=== PATIENT | male | born 1980 | race Hispanic/Latino ===

== ENCOUNTER 2023-08-19 15:37 | Observation (INO) | payer OTHER ==
[~2023-08-19] VITALS: Ht 175.3 cm; Wt 133.4 kg
[~2023-08-19 15:37] MED LIST: DOXYCYCLINE HY100 MG PO
[2023-08-19] MEDS: Vancomycin IV 1 GM in SODIUM CHLORIDE 0.9% 250ML 250 ML IV SCH (17:31)
[2023-08-19] MEDS: SODIUM CHLORIDE 0.9% 1000ML 1,000 ML IV STA (17:32)
[2023-08-19] MEDS: KETOROLAC TROMETHAMINE 30 MG/ML VIAL IV STA (17:33)
[2023-08-19] MEDS: ONDANSETRON HCL INJ 2MG/ML 2ML 2 MG/ML VIAL IV STA (17:33)
[2023-08-19 17:42] LABS: BASOPHILS # (AUTO) 0.1 (0.0-0.1); BASOPHILS % 0.4 % (0.0-1.0); EOSINOPHILS # (AUTO) 0.3 (0.0-0.4); EOSINOPHILS % 2.8 % (0.0-6.0); HEMATOCRIT 40.9 % (38.2-49.6); HEMOGLOBIN 14.2 g/dL (14.0-18.0); LYMPHOCYTES # (AUTO) 2.6 (1.0-3.2); MEAN CORPUSCULAR HEMOGLOBIN 29.8 pg (28-32); MEAN CORPUSCULAR HGB CONC 34.7 g/dL (31-35); MEAN CORPUSCULAR VOLUME 85.9 fL (81-99); MONOCYTES # (AUTO) 0.9 (0.2-0.8); MONOCYTES % 7.8 % (4.4-11.3); NEUTROPHILS # (AUTO) 7.9 (2.1-6.9); NEUTROPHILS % 66.7 % (38.7-80.0); PLATELET COUNT 239 x10e3/uL (140-360); RED BLOOD COUNT 4.76 x10e6/uL (4.3-5.7); RED CELL DISTRIBUTION WIDTH 13.6 % (11.7-14.4); WHITE BLOOD COUNT 11.86 x10e3/uL (4.8-10.8)
[2023-08-19 17:53] LABS: INR 1.02; PARTIAL THROMBOPLASTIN TIME 32.6 seconds (23.8-35.5); PROTHROMBIN TIME 13.6 seconds (11.9-14.5)
[2023-08-19 17:58] LABS: ALBUMIN 3.8 g/dL (3.5-5.0); ANION GAP 16.1 mmol/L (8-16); BILIRUBIN,TOTAL 0.5 mg/dL (0.2-1.2); CALCIUM 9.3 mg/dL (8.4-10.2); CREATININE, SERUM 0.78 mg/dL (0.72-1.25); MAGNESIUM 1.9 MG/DL (1.3-2.1); POTASSIUM 4.1 mmol/L (3.5-5.1); TOTAL PROTEIN 7.7 g/dL (6.5-8.1)
[2023-08-19] MEDS: SODIUM CHLORIDE 0.9% 1000ML 1,000 ML IV SCH ×2 (19:38→21:43)
[2023-08-19] MEDS ORDERED: FAMOTIDINE 20 MG TAB PO PRN (20:00)
[2023-08-19 20:45] VITALS: BP 160/111; PULSE 89; RESP 18; TEMP 98; O2SAT 100
[2023-08-19 21:00] VITALS: BP 160/98; PULSE 89; RESP 18; TEMP 98; O2SAT 100
[2023-08-19 21:22] VITALS: BP 160/98; PULSE 89; RESP 18; TEMP 98; O2SAT 100
[2023-08-19] MEDS: MELATONIN 5 MG TABLET PO PRN (21:43)
[2023-08-19] MEDS: HYDROMORPHONE 1MG/1ML INJ IV PRN (21:43)
[2023-08-20] VITALS (7 sets, daily range): BP systolic 118–155; BP diastolic 77–102; PULSE 69–95; RESP 17–18; TEMP 97.7–98.9; O2SAT 98–100
[2023-08-20] MEDS: HYDROXYZINE HCL 25 MG TAB PO PRN (00:25)
[2023-08-20] MEDS: KETOROLAC TROMETHAMINE 30 MG/ML VIAL IM PRN (03:23)
[2023-08-20 06:04] LABS: BASOPHILS # (AUTO) 0.1 (0.0-0.1); BASOPHILS % 0.4 % (0.0-1.0); EOSINOPHILS # (AUTO) 0.4 (0.0-0.4); EOSINOPHILS % 3.5 % (0.0-6.0); HEMATOCRIT 36.2 % (38.2-49.6); HEMOGLOBIN 12.1 g/dL (14.0-18.0); LYMPHOCYTES # (AUTO) 3.1 (1.0-3.2); LYMPHOCYTES % 27.6 % (18.0-39.1); MEAN CORPUSCULAR HEMOGLOBIN 29.2 pg (28-32); MEAN CORPUSCULAR HGB CONC 33.4 g/dL (31-35); MEAN CORPUSCULAR VOLUME 87.2 fL (81-99); MONOCYTES # (AUTO) 0.8 (0.2-0.8); MONOCYTES % 7.2 % (4.4-11.3); NEUTROPHILS # (AUTO) 6.9 (2.1-6.9); NEUTROPHILS % 60.9 % (38.7-80.0); PLATELET COUNT 209 x10e3/uL (140-360); RED BLOOD COUNT 4.15 x10e6/uL (4.3-5.7); RED CELL DISTRIBUTION WIDTH 13.8 % (11.7-14.4); WHITE BLOOD COUNT 11.25 x10e3/uL (4.8-10.8)
[2023-08-20 07:00] LABS: ALBUMIN 3.2 g/dL (3.5-5.0); ANION GAP 13.9 mmol/L (8-16); BILIRUBIN,TOTAL 0.4 mg/dL (0.2-1.2); CALCIUM 8.4 mg/dL (8.4-10.2); CREATININE, SERUM 0.75 mg/dL (0.72-1.25); POTASSIUM 3.9 mmol/L (3.5-5.1); TOTAL PROTEIN 6.5 g/dL (6.5-8.1)
[2023-08-20] MEDS: LOSARTAN POTASSIUM 25 MG TAB PO SCH (09:19)
[2023-08-20] MEDS ORDERED: SUCCINYLCHOLINE CHLORIDE 20 MG/ML 10ML VIAL ONE (12:48)
[2023-08-20] MEDS ORDERED: LIDOCAINE HCL 2% LOCAL INJ 5 ML SDV VIAL INJ ONE (12:48)
[2023-08-20] MEDS ORDERED: PROPOFOL IV EMULSION 10 MG/ML 20 ML VIAL ONE (12:48)
[2023-08-20] MEDS ORDERED: DEXAMETHASONE SOD PHOS INJ 4 MG/ML SDV ONE (12:48)
[2023-08-20] MEDS ORDERED: DEXMEDETOMIDINE HCL 200 MCG/2 ML VIAL ONE (12:48)
[2023-08-20] MEDS ORDERED: SEVOFLURANE INHAL SOLN 250 ML PEN BTL ONE (12:48)
[2023-08-20] MEDS ORDERED: ONDANSETRON HCL INJ 2MG/ML 2ML 2 MG/ML VIAL ONE (12:48)
[2023-08-20] MEDS ORDERED: FENTANYL CITRATE/PF 100MCG/2 ML INJ ONE (12:57)
[2023-08-20] MEDS ORDERED: BUPIVACAINE 0.25% 30ML SDV ONE (14:54)
[2023-08-20] MEDS ORDERED: LIDOCAINE 1% W/EPINEPHRINE 20 ML VIAL ONE (14:54)
[2023-08-20] MEDS ORDERED: LIDOCAINE HCL 1% LOCAL INJ 20 ML VIAL ONE (14:54)
[2023-08-20] MEDS: FENTANYL CITRATE/PF 100MCG/2 ML INJ ONE (16:00)
[2023-08-20] MEDS: HYDROCODONE/APAP 7.5MG-325MG 1 EA TAB PO PRN (17:06)
[2023-08-20] MEDS: ONDANSETRON HCL INJ 2MG/ML 2ML 2 MG/ML VIAL IV PRN (17:13)
[2023-08-20] MEDS: KETOROLAC TROMETHAMINE 30 MG/ML VIAL IV PRN (19:04)
[2023-08-20] MEDS: HYDROMORPHONE 1MG/1ML INJ IV PRN (23:26)
[2023-08-21] VITALS: BP 145/89; PULSE 86; RESP 17; TEMP 98.3; O2SAT 97
[2023-08-21 04:00] VITALS: BP 125/76; PULSE 76; RESP 18; TEMP 97.9; O2SAT 96
[2023-08-21 05:55] LABS: BASOPHILS % 0.4 % (0.0-1.0); EOSINOPHILS % 0.1 % (0.0-6.0); HEMATOCRIT 40.6 % (38.2-49.6); HEMOGLOBIN 13.1 g/dL (14.0-18.0); LYMPHOCYTES # (AUTO) 1.9 (1.0-3.2); MEAN CORPUSCULAR HEMOGLOBIN 28.9 pg (28-32); MEAN CORPUSCULAR HGB CONC 32.3 g/dL (31-35); MEAN CORPUSCULAR VOLUME 89.4 fL (81-99); MONOCYTES # (AUTO) 0.4 (0.2-0.8); MONOCYTES % 3.8 % (4.4-11.3); NEUTROPHILS # (AUTO) 8.9 (2.1-6.9); NEUTROPHILS % 78.3 % (38.7-80.0); PLATELET COUNT 231 x10e3/uL (140-360); RED BLOOD COUNT 4.54 x10e6/uL (4.3-5.7); RED CELL DISTRIBUTION WIDTH 13.4 % (11.7-14.4); WHITE BLOOD COUNT 11.38 x10e3/uL (4.8-10.8)
[2023-08-21 06:42] LABS: ALBUMIN 3.2 g/dL (3.5-5.0); ALBUMIN/GLOBULIN RATIO 0.8 (0.8-2.0); ANION GAP 14.5 mmol/L (8-16); BILIRUBIN,TOTAL 0.3 mg/dL (0.2-1.2); CALCIUM 8.9 mg/dL (8.4-10.2); CREATININE, SERUM 0.78 mg/dL (0.72-1.25); POTASSIUM 4.5 mmol/L (3.5-5.1); TOTAL PROTEIN 7.3 g/dL (6.5-8.1)
[2023-08-21 08:43] VITALS: BP 122/86; PULSE 68; RESP 20; TEMP 97.7; O2SAT 100
[2023-08-21 08:45] VITALS: BP 122/86; PULSE 68; RESP 20; TEMP 97.7; O2SAT 100
[2023-08-21] MEDS ORDERED: HYDROCODON-ACE1 EA11 PO (12:07)
[2023-08-21 15:27] VITALS: BP 140/69; PULSE 69; RESP 16; TEMP 98.1; O2SAT 96
[2023-08-21 15:44] LABS: CALCIUM 8.9 mg/dL (8.4-10.2); CREATININE, SERUM 0.82 mg/dL (0.72-1.25)
== END 2023-08-21 15:40 | disposition home or self-care (01) ==
LOC: ER 16:18 → ERHOLD 18:21 → MED/SURG2 21:08
PROVIDERS: ADMIT Family Medicine Adult Medicine; ATTEND Family Medicine Adult Medicine
DX: L05.01 Pilonidal cyst with abscess (principal); D72.829 Elevated white blood cell count, unspecified; E66.9 Obesity, unspecified; K57.90 Diverticulosis of intestine, part unspecified, without perforation or abscess without bleeding; F41.9 Anxiety disorder, unspecified; K21.9 Gastro-esophageal reflux disease without esophagitis; R03.0 Elevated blood-pressure reading, without diagnosis of hypertension; Z11.52 Encounter for screening for COVID-19; Z88.6 Allergy status to analgesic agent; Z91.041 Radiographic dye allergy status; Z90.49 Acquired absence of other specified parts of digestive tract; Z68.41 Body mass index [BMI] 40.0-44.9, adult
CPT/HCPCS: 11771; 36415 ×3; 80048; 80053 ×3; 80202; 83735; 85025 ×3; 85610; 85730; 87040; 87071; 87075; 87205; 99284; G0378 ×3; J0330; J1100; J1170 ×2; J1885 ×3; J2001; J2405 ×3; J2543 ×3; J2704; J3010; J3370 ×3; J3410; J7030 ×3; J7050 ×3; U0002